=== PATIENT | female | born 1925 | race Caucasian/White ===

== ENCOUNTER → 2016-10-30 | Outpatient (CLI) | payer MEDICARE, OTHER ==
[~2016-10-30] MED LIST: ARICEPT ODT5 MG PO; ASPIR-LOW81 MG PO; ASPIRIN 81M81 MG/TA2 PO; CALCIUM WITH VI1 TAB PO; CARDI-OMEGA1000 MG PO; CEFTIN500 MG PO; CELEBREX 200MG200 MG PO; CEPHALEXIN500 M1 PO; CIPRO; CRANBERRY1 CAP PO; DITROPAN XL10 MG PO; DYAZIDE 25 MG-31 CAP PO; FOSAMAX 70MG TA70 MG PO; HCTZ 25MG TAB25 MG PO; LEVAQUIN 5500 MG/TA1 PO; LEVOTHYROXINE0.1 MG PO; LEVOXYL0.1 MG PO; LORATADINE10 MG PO; MACRODANTIN50 MG PO; MACRODANTIN50 MG/CA1 PO; MICROZIDE12.5 MG; NAPROXEN 3375 MG/TAB PO; NORCO 325 MG-51 TAB PO; OSCAL W/VIT D250 MG PO; PHENERGAN W/CO120 M1 PO; PREMARIN VAG42.5 GM VG; PRILOSEC 20MG20 MG PO; VESICARE PO; VITAMIN C1 TAB PO; VITAMIN C500 MG PO; ZITHROMAX 250M250 MG PO; ZOFRAN ODT4 MG PO
== END ==
LOC: MC.RAD 14:08
DX: Z12.31 Encounter for screening mammogram for malignant neoplasm of breast (principal)